=== PATIENT | female | born 1985 | race Two or more races ===

== ENCOUNTER 2020-07-13 11:15 | Emergency (ER) | payer OTHER ==
[2020-07-13 11:20] VITALS: BP 128/78; PULSE 83; TEMP 98.3; BMI 31.7
[2020-07-13 12:23] LABS: EPI CELLS >36 /uL (0-25.1); HYALINE CASTS 5 /uL (0-3.1); PH,URINE 6.5 (5.0-8.0); URINE APPEARANCE CLOUDY; URINE BACTERIA 8912 /uL (0-1359); URINE BILIRUBIN NEGATIVE (NEGATIVE); URINE COLOR YELLOW; URINE GLUCOSE (UA) NEGATIVE (NEGATIVE); URINE KETONE NEGATIVE (NEGATIVE); URINE LEUK ESTERASE 2+ (NEGATIVE); URINE NITRITE NEGATIVE (NEGATIVE); URINE PROTEIN NEGATIVE (NEGATIVE); URINE RBC 13 /uL (0-23.9); URINE UROBILINOGEN 0.2 mg/dL (0.2-1.0); URINE WBC 303 /uL (0-25.8)
== END 2020-07-13 12:56 | disposition home or self-care (01) ==
LOC: JER 11:15
DX: O23.42 Unspecified infection of urinary tract in pregnancy, second trimester (principal); O26.892 Other specified pregnancy related conditions, second trimester
CPT/HCPCS: 76815-TC; 81003; 87086; 99284-25

== ENCOUNTER 2020-11-25 21:30 | Inpatient (IN) | payer OTHER ==
[2020-11-25] MEDS ORDERED: BUTORPHANOL TARTRATE 1 MG/ML VIAL IVPB PRN (22:43)
[2020-11-25] MEDS ORDERED: BUTORPHANOL TARTRATE 2 MG/ML VIAL IVPB PRN (22:43)
[2020-11-25] MEDS ORDERED: DINOPROSTONE 10 MG VAGINAL SUPPOSITORY VG STA (22:45)
[2020-11-25] MEDS ORDERED: LABETALOL HCL 200 MG TABLET (FP) ONE (22:58)
[2020-11-25] MEDS: LABETALOL HCL 200 MG TABLET (FP) PO PRN (23:00)
[2020-11-25] MEDS ORDERED: AMPICILLIN - 2 GM in SODIUM CHLORIDE 100 ML IVPB ONE (23:52)
[2020-11-26] MEDS ORDERED: AMPICILLIN SODIUM 2 GM VIAL ONE (00:16)
[2020-11-26 00:53] LABS: RETICULOCYTES 2.32 % (0.5-1.5)
[2020-11-26 01:17] LABS: URIC ACID 5.2 mg/dL (2.6-7.2)
[2020-11-26 01:18] LABS: SGOT/AST 39 U/L (15-37); SGPT/ALT 17 U/L (13-61)
[2020-11-26 01:22] VITALS: BMI 35.3
[2020-11-26] MEDS ORDERED: BENZOCAINE 28 GM HEMORRHOIDAL OINTMENT RC PRN (02:56)
[2020-11-26] MEDS ORDERED: BENZOCAINE 20% 57 GM BOTTLE TP PRN (02:56)
[2020-11-26] MEDS ORDERED: BISACODYL 10 MG SUPP.RECT PR PRN (02:56)
[2020-11-26] MEDS ORDERED: WITCH HAZEL 50% (TUCKS) 40 PAD/JAR PAD TP PRN (02:56)
[2020-11-26] MEDS ORDERED: ACETAMINOPHEN 325 MG TABLET (FP) PO PRN (02:56)
[2020-11-26] MEDS ORDERED: METHYLERGONOVINE MALEATE 0.2 MG/1 ML AMP IM PRN (02:56)
[2020-11-26] MEDS: AMPICILLIN - 1 GM in SODIUM CHLORIDE 100 ML IVPB SCH ×4 (04:15→15:57)
[2020-11-26] MEDS ORDERED: AMPICILLIN SODIUM 1 GM VIAL ONE ×3 (04:48→12:20)
[2020-11-26] MEDS: LABETALOL HCL 200 MG TABLET (FP) PO PRN ×3 (06:30→18:28)
[2020-11-26] MEDS ORDERED: LABETALOL HCL 200 MG TABLET (FP) ONE ×2 (06:59→12:58)
[2020-11-26] MEDS ORDERED: OXYTOCIN 30 UNITS in 0.9% NS 30 UNIT/500 ML INFUS.BAG IVPB SCH (08:00)
[2020-11-26] MEDS: ELECTROLYTE-148 SOLN 1,000 ML IV SCH ×2 (08:30)
[2020-11-26] MEDS ORDERED: OXYTOCIN 30 UNITS in 0.9% NS 30 UNIT/500 ML INFUS.BAG IVPB ONE (09:24)
[2020-11-26] MEDS ORDERED: PCA PUMP NR ONE (12:58)
[2020-11-26] MEDS ORDERED: FENTANYL/BUPIVACAINE/NS/PF - PCEA - 50 ML DISP.SYRIN EP ONE (12:58)
[2020-11-26] MEDS ORDERED: NALOXONE HCL 0.4 MG/ML VIAL IVPUSH PRN (13:10)
[2020-11-26] MEDS ORDERED: FENTANYL/BUPIVACAINE/NS/PF - PCEA - 50 ML DISP.SYRIN EP SCH (13:15)
[2020-11-26] MEDS ORDERED: OXYTOCIN 20 UNITS in 0.9% NS 20 UNIT/1,000 ML INFUS.BAG IV ONE (14:13)
[2020-11-26] MEDS ORDERED: OXYTOCIN 20 UNITS in 0.9% NS 20 UNIT/1,000 ML INFUS.BAG IV SCH (14:30)
[2020-11-26 15:25] LABS: CORD HCO3 20.3 mmHg (20-29); CORD PCO2 35.3 mmHg (30-78); CORD pH 7.378 (7.14-7.44)
[2020-11-26 15:29] LABS: CORD BASE EXCESS -9.1 mmol/L (0-2); CORD HCO3 18.7 mmHg (20-29); CORD PCO2 47.9 mmHg (30-78); CORD pH 7.209 (7.14-7.44)
[2020-11-26] MEDS: FERROUS SO4 325 MG TABLET (FP) PO SCH (17:41)
[2020-11-26] MEDS: IBUPROFEN 600 MG TABLET (FP) PO PRN ×2 (18:16→22:57)
[2020-11-26] MEDS ORDERED: SENNOSIDES/DOCUSATE COMBO (SENNA PLUS) TABLET (UD) PO SCH (22:00)
[2020-11-27] MEDS: LABETALOL HCL 200 MG TABLET (FP) PO PRN ×2 (00:30→06:45)
[2020-11-27] MEDS: IBUPROFEN 600 MG TABLET (FP) PO PRN ×3 (06:45→20:22)
[2020-11-27] MEDS: PRENATAL VITAMINS W/ FOLIC ACID TABLET (FP) PO SCH (09:56)
[2020-11-27] MEDS: FERROUS SO4 325 MG TABLET (FP) PO SCH ×3 (09:56→17:20)
[2020-11-27 10:13] LABS: BASO % 0.2 % (0-2.0); EOS % 0.9 % (0-4.5); HEMATOCRIT 29.4 % (32.4-45.2); HEMOGLOBIN 10.1 GM/dL (10.7-15.3); LYMPH % 15.8 % (8-40); MCH 31.7 pg (25.7-33.7); MCHC 34.4 g/dl (32.0-36.0); MEAN CELL VOLUME 92.4 fl (80-96); MEAN PLT VOLUME 9.6 fl (7.5-11.1); MONO % 5.1 % (3.8-10.2); PLATELET COUNT 129 10^3/uL (134-434); RBC 3.18 M/mm3 (3.60-5.2); RDW 15.7 % (11.6-15.6); WHITE BLOOD COUNT 8.7 K/mm3 (4.0-10.0)
[2020-11-27] MEDS: LABETALOL HCL 200 MG TABLET (FP) PO SCH ×2 (20:23→22:07)
[2020-11-28 08:56] VITALS: BP 138/83; PULSE 93; TEMP 98.3
[2020-11-28] MEDS: FERROUS SO4 325 MG TABLET (FP) PO SCH ×2 (09:43→12:26)
[2020-11-28] MEDS: LABETALOL HCL 200 MG TABLET (FP) PO SCH (09:44)
[2020-11-28] MEDS: PRENATAL VITAMINS W/ FOLIC ACID TABLET (FP) PO SCH (09:44)
== END 2020-11-28 13:15 | disposition home or self-care (01) | DRG 560 ==
LOC: JLDR 21:30 → J3W 11-26 17:00
PROVIDERS: ADMIT Obstetrics & Gynecology; ATTEND Obstetrics & Gynecology
PROC: 3E0P7VZ Introduction of Hormone into Female Reproductive, Via Natural or Artificial Opening (ICD-10-PCS; 2020-11-25)
PROC: 10E0XZZ Delivery of Products of Conception, External Approach (ICD-10-PCS; principal; 2020-11-26)
PROC: 10907ZC Drainage of Amniotic Fluid, Therapeutic from Products of Conception, Via Natural or Artificial Opening (ICD-10-PCS; 2020-11-26)
DX: O10.92 Unspecified pre-existing hypertension complicating childbirth (principal); O69.81X0 Labor and delivery complicated by cord around neck, without compression, not applicable or unspecified; Z3A.38 38 weeks gestation of pregnancy; Z37.0 Single live birth
CPT/HCPCS: 36415; 36600; 59409; 82803; 82977; 83010; 84450; 84460; 84550; 85025; 85032; 85045; 86850; 86900; 86901

== ENCOUNTER 2022-05-17 08:27 | Emergency (ER) | payer OTHER ==
[2022-05-17 08:53] VITALS: BP 144/89; PULSE 78; RESP 18; TEMP 98.6; BMI 26.4
[2022-05-17 12:13] LABS: URINE APPEARANCE CLEAR; URINE BILIRUBIN NEGATIVE (NEGATIVE); URINE COLOR YELLOW; URINE GLUCOSE (UA) NEGATIVE (NEGATIVE); URINE KETONE NEGATIVE (NEGATIVE); URINE LEUK ESTERASE NEGATIVE (NEGATIVE); URINE NITRITE NEGATIVE (NEGATIVE); URINE PROTEIN NEGATIVE (NEGATIVE); URINE UROBILINOGEN 0.2 mg/dL (0.2-1.0)
[2022-05-17 12:18] LABS: EOS % 2.4 % (0-4.5); HEMATOCRIT 31.3 % (32.4-45.2); HEMOGLOBIN 10.7 GM/dL (10.7-15.3); LYMPH % 36.9 % (8-40); MCH 29.2 pg (25.7-33.7); MCHC 34.1 g/dl (32.0-36.0); MEAN CELL VOLUME 85.5 fl (80-96); MEAN PLT VOLUME 8.4 fl (7.5-11.1); MONO % 7.5 % (3.8-10.2); NEUT % 52.2 % (42.8-82.8); PLATELET COUNT 297 10^3/uL (134-434); RBC 3.66 M/mm3 (3.60-5.2); RDW 15.3 % (11.6-15.6); WHITE BLOOD COUNT 7.6 K/mm3 (4.0-10.0)
[2022-05-17 12:33] LABS: CALCIUM 9.1 mg/dL (8.5-10.1)
[2022-05-17 12:34] LABS: ALBUMIN 3.9 g/dl (3.4-5.0); BLOOD UREA NITROGEN 13.5 mg/dL (7-18)
[2022-05-17 12:37] LABS: CREATININE 0.8 mg/dL (0.55-1.3)
[2022-05-17 12:39] LABS: BILIRUBIN,TOTAL 0.4 mg/dL (0.2-1)
[2022-05-17] MEDS ORDERED: KETOROLAC TROMETHAMINE 15 MG/ML VIAL IVPUSH ONE (13:09)
[2022-05-17] MEDS ORDERED: KETOROLAC TROMETHAMINE 15 MG/ML VIAL ONE (13:25)
== END 2022-05-17 14:19 | disposition home or self-care (01) ==
LOC: JERFT 08:27 → JER 08:27 → JERFT 14:19
PROC: 3E033GC Introduction of Other Therapeutic Substance into Peripheral Vein, Percutaneous Approach (ICD-10-PCS; principal; 2022-05-17)
DX: N83.202 Unspecified ovarian cyst, left side (principal)
CPT/HCPCS: 36415; 74177-TC; 80053; 81003; 84703; 85025; 87086; 99285-25; Q9967